=== PATIENT | male | born 1985 | race Two or more races ===

== ENCOUNTER 2024-11-12 16:30 | Emergency (ER) | payer OTHER ==
[~2024-11-12] VITALS: Ht 175.3 cm; Wt 104.3 kg
[2024-11-12] MEDS ORDERED: DIPHENHYDRAMINE HCL 50 MG/ML VIAL 1ML IM STA (18:27)
[2024-11-12] MEDS ORDERED: METHYLPREDNISOLONE SOD SUCC 125 MG VIAL IV STA (18:28)
== END 2024-11-12 20:57 | disposition home or self-care (01) ==
LOC: ER 16:30
DX: T30.0 Burn of unspecified body region, unspecified degree (principal); X32.XXXA Exposure to sunlight, initial encounter